=== PATIENT | male | born 1950 | race Caucasian/White ===

== ENCOUNTER 2016-11-12 11:12 | Outpatient (CLI) | payer BC, MEDICARE | END 2016-11-12 11:13 | disposition home or self-care (01) | DRG 561 | LOC: CONVCARE 11:12 | PROVIDERS: ATTEND Orthopaedic Surgery | DX: S82.092D Other fracture of left patella, subsequent encounter for closed fracture with routine healing (principal); Z96.652 Presence of left artificial knee joint | CPT/HCPCS: 73562 ==

== ENCOUNTER 2017-05-20 13:11 | Outpatient (CLI) | payer OTHER, MEDICARE | END 2017-05-20 13:12 | disposition home or self-care (01) | DRG 561 | LOC: CONVCARE 13:11 | PROVIDERS: ATTEND Orthopaedic Surgery | DX: S82.092D Other fracture of left patella, subsequent encounter for closed fracture with routine healing (principal); Z96.653 Presence of artificial knee joint, bilateral | CPT/HCPCS: 73562 ==